=== PATIENT | male | born 1975 | race Caucasian/White ===

== ENCOUNTER 2017-08-08 19:56 | Inpatient (IN) | payer BC, OTHER ==
[~2017-08-08] VITALS: Ht 177.8 cm; Wt 80.3 kg
[~2017-08-08 19:56] MED LIST: DOXY50 OR; PRIL20TA2 PO
[2017-08-08 20:18] VITALS: BP 113/62; PULSE 109; RESP 18; TEMP 98.3; O2SAT 98
[2017-08-08] MEDS ORDERED: PRIL20TA2 PO (20:27)
--- NOTE | 2017-08-08 20:39 | PD ---
HPI Chief Complaint: GI Complaint Time Seen by Provider: 20:23 Travel History International Travel<30 days: No Contact w/Intl Traveler<30days: No Traveled to known affect area: No History of Present Illness HPI 41yo M with PMH of fibromyalgia here with c/o vomiting and nausea since 6am today. Said he was hungry at 2am and ate some [employer] stovetop meal. Said after vomiting, he started having a headache and generalized bodyache. Said pain in his body moves to different locations throughout the day. + Photophobia. Has history of migraine and similar headaches before. Denies any blood in vomit. Denies any fever, cough, chest pain, sob, abdominal pain, focal weakness or numbness. PFSH Past Medical History Diminished Hearing: No Fibromyalgia: Yes GERD: Yes Medical other: Yes (LYME) Musculoskeletal: Yes (BROKEN RIGHT ANKLE 12/31) Immunizations Current: Yes Tetanus Vaccination: > 5 Years Influenza Vaccination: No Past Surgical History Surgical History: No Previous Surgery Social History Alcohol Use: Yes (OCCASIONAL USE) Tobacco Use: No Substance Use: No Allergies-Medications (Allergen,Severity, Reaction): Coded Allergies: diphenhydramine (Unverified Allergy, Severe, TWITCHING, 08/08/17) Reported Meds & Prescriptions Reported Meds & Active Scripts Active Reported Prilosec (Omeprazole Magnesium) 20 Mg Tab 1 Tab PO DAILY Review of Systems Except as stated in HPI: all other systems reviewed are Neg Physical Exam Narrative GENERAL: 41yo M in mild distress. SKIN: Focused skin assessment warm/dry. HEAD: Atraumatic. Normocephalic. EYES: Pupils equal and round at 3mm bilaterally. EOMI. ENT: No nasal bleeding or discharge. Mucous membranes pink and moist. NECK: No nuchal rigidity. CARDIOVASCULAR: Mildly tachycardic at 109bpm. No murmur appreciated. RESPIRATORY: No accessory muscle use. Clear to auscultation. Breath sounds equal bilaterally. GASTROINTESTINAL: Abdomen soft, non-tender, nondistended. MUSCULOSKELETAL: No obvious deformities. No clubbing. No cyanosis. No edema. NEUROLOGICAL: Awake and alert. No obvious cranial nerve deficits. Motor grossly within normal limits. Normal speech. PSYCHIATRIC: Appropriate mood and affect; insight and judgment normal. Data Data Last Documented VS Vital Signs Date Time Temp Pulse Resp B/P (MAP) Pulse Ox O2 Delivery O2 Flow Rate FiO2 4/14/18 20:18 98.3 109 18 113/62 (79) 98 Orders Orders Complete Blood Count With Diff (08/08/17 20:33) Basic Metabolic Panel (Bmp) (08/08/17 20:33) Lipase (08/08/17 20:33) Sodium Chlor 0.9% 1000 Ml Inj (Ns 1000 M (08/08/17 20:45) Metoclopramide Inj (Reglan Inj) (08/08/17 20:45) Ketorolac Inj (Toradol Inj) (08/08/17 20:45) Influenzae A/B Antigen (08/08/17 20:33) Blood Culture (08/08/17 21:36) Lactic Acid Sepsis Protocol (08/08/17 21:36) Urinalysis - C+S If Indicated (08/08/17 21:36) Chest, Single Ap (08/08/17 ) Piperacil-Tazo 3.375 Gm Premix (Zosyn 3. (08/08/17 21:45) Vancomycin Consult Pharmacy (Vancomycin (08/08/17 22:00) Piperacil-Tazo 4.5 Gm Premix (Zosyn 4.5 (08/09/17 04:00) Admit To Inpatient (08/08/17 ) Vital Signs (Adult) Q4H (08/08/17 21:46) Activity Oob Ad Celia (08/08/17 21:46) [employer] Installer / Telemetry .CONTINUOUS (08/08/17 21:46) Intake + Output OSIRIS.QSHIFT (08/08/17 21:46) Diet Regular Basic (08/09/17 Breakfast) Sodium Chlor 0.9% 1000 Ml Inj (Ns 1000 M (08/08/17 21:46) Sodium Chloride 0.9% Flush (Ns Flush) (08/08/17 22:00) Sodium Chloride 0.9% Flush (Ns Flush) (08/09/17 09:00) Ondansetron Inj (Zofran Inj) (08/08/17 22:00) Comprehensive Metabolic Panel (08/09/17 06:00) Complete Blood Count With Diff (08/09/17 06:00) Scd Bilateral/Knee High OSIRIS.BID (08/08/17 21:46) Scotty Bilateral/Knee High OSIRIS.QSHIFT (08/08/17 21:49) Acetaminophen (Tylenol) (08/08/17 22:00) Acetamin-Hydrocod 325-5 Mg ([place] 5-325 (08/08/17 22:00) Morphine Inj (Morphine Inj) (08/08/17 22:00) Docusate Sodium-Senna (Cathi-Colace) (08/09/17 09:00) Magnesium Hydroxide Liq (Milk Of Magnesi (08/08/17 22:00) Sennosides (Senokot) (08/08/17 22:00) Bisacodyl Supp (Dulcolax Supp) (08/08/17 22:00) Lactulose Liq (Lactulose Liq) (08/08/17 22:00) Inpatient Certification (08/08/17 ) Vancomycin Inj (Vancomycin Inj) (08/08/17 22:00) Admit Order (Ed Use Only) (08/08/17 22:01) Labs Laboratory Tests Test 08/08/17 20:40 08/08/17 21:50 White Blood Count 9.3 TH/MM3 Red Blood Count 5.08 MIL/MM3 Hemoglobin 14.9 GM/DL Hematocrit 45.2 % Mean Corpuscular Volume 89.0 FL Mean Corpuscular Hemoglobin 29.3 PG Mean Corpuscular Hemoglobin Concent 32.9 % Red Cell Distribution Width 12.2 % Platelet Count 274 TH/MM3 Mean Platelet Volume 8.0 FL CBC Comment AUTO DIFF Differential Total Cells Counted 100 Neutrophils % (Manual) 69 % Band Neutrophils % 21 % Lymphocytes % 7 % Monocytes % 3 % Neutrophils # (Manual) 8.4 TH/MM3 Differential Comment FINAL DIFF MANUAL Platelet Estimate NORMAL Platelet Morphology Comment NORMAL Red Cell Morphology Comment NORMAL Blood Urea Nitrogen 18 MG/DL Creatinine 1.10 MG/DL Random Glucose 114 MG/DL Calcium Level 8.9 MG/DL Sodium Level 137 MEQ/L Potassium Level 3.5 MEQ/L Chloride Level 103 MEQ/L Carbon Dioxide Level 28.0 MEQ/L Anion Gap 6 MEQ/L Estimat Glomerular Filtration Rate 75 ML/MIN Lipase 69 U/L Urine Color YELLOW Urine Turbidity CLEAR Urine pH 6.5 Urine Specific [place] 1.015 Urine Protein TRACE mg/dL Urine Glucose (UA) NEG mg/dL Urine Ketones TRACE mg/dL Urine Occult Blood NEG Urine Nitrite NEG Urine Bilirubin NEG Urine Urobilinogen 0.2 MG/DL Urine Leukocyte Esterase NEG Urine RBC 3-5 /hpf Urine WBC 3-5 /hpf Urine Squamous Epithelial Cells 6-8 /hpf Urine Bacteria NONE /hpf Microscopic Urinalysis Comment CULT NOT INDICATED Lactic Acid Level 1.1 mmol/L MDM Medical Decision Making Medical Screen Exam Complete: Yes Emergency Medical Condition: Yes Differential Diagnosis Dehydration vs. migraine headache vs. gastroenteritis Narrative Course 41yo M with vomiting and nausea started 6am today. Pt then started having a headache that is associated with photophobia. Pt has no abdominal tenderness on exam but said has generalized pain that moves around his body. Pt denies any fever, but is mildly tachycardic at 109bpm. Pt given toradol, NS IVF and reglan. Pt reevaluated at bedside and said his headache has improved a lot and no longer nauseous. Influenza negative. Labs reviewed, no leukocytosis but bandemia of 21%. Blood cultures were drawn and lactic acid added. Pt empirically covered with vancomycin and zosyn for sepsis. Pt has no nuchal rigidity with full range of movement of neck and is nontoxic appearing. I discussed lumbar puncture with patient for low suspicion of bacterial meningitis and pt does not want lumbar puncture. To me this is more flu like symptoms. However, because of the bandemia and tachycardia, will admit. Pt said he is now coughing a little now so will add CXR and UA. CXR and UA negative. Discussed with Dr. Fuentes and accepted to her service. Sepsis Criteria SIRS Criteria (2 or more): Heart rate over 90, WBC > 78864, < 4000 or > 10% bands Diagnosis Primary Impression: Bandemia Admitting Information Admitting Physician Requests: Admit Elizabeth Friedman DO Aug 08, 2017 20:39
[2017-08-08] MEDS ORDERED: SODIUM CHLOR 0.9% 1000 ML INJ 1,000 ML IV ONE (20:45)
[2017-08-08] MEDS ORDERED: KETOROLAC TROMETHAMINE 30 MG/ML (IVP) VIAL IV PUSH ONE (20:45)
[2017-08-08] MEDS ORDERED: METOCLOPRAMIDE INJ 10 MG in SODIUM CHLORIDE 0.9% INJ 50 ML IV ONE (20:45)
[2017-08-08 20:48] LABS: HEMATOCRIT 45.2 % (39.0-51.0); HEMOGLOBIN 14.9 GM/DL (13.0-17.0); MEAN CORPUSCULAR HEMOGLOBIN 29.3 PG (27.0-34.0); MEAN CORPUSCULAR HGB CONC 32.9 % (32.0-36.0); PLATELET COUNT 274 TH/MM3 (150-450); RED BLOOD COUNT 5.08 MIL/MM3 (4.50-5.90); RED CELL DISTRIBUTION WIDTH 12.2 % (11.6-17.2); WHITE BLOOD COUNT 9.3 TH/MM3 (4.0-11.0)
[2017-08-08 21:00] LABS: CALCIUM 8.9 MG/DL (8.5-10.1)
[2017-08-08 21:03] LABS: CREATININE 1.1 MG/DL (0.60-1.30)
[2017-08-08 21:04] LABS: BANDS 21 % (0-6); LYMPHOCYTES 7 % (9-44); MONOCYTES 3 % (0-8); NEUTROPHIL # MANUAL DIFF 8.4 TH/MM3 (1.8-7.7); POLYS (SEG NEUTROPHILS) 69 % (16-70)
[2017-08-08] MEDS ORDERED: VANCOMYCIN INJ 1,251 MG in SODIUM CHLORID 0.9% 500 ML INJ 500 ML IV ONE (21:45)
[2017-08-08] MEDS ORDERED: PIPERACIL-TAZO 3.375 GM PREMIX 50 ML IV ONE (21:45)
[2017-08-08] MEDS ORDERED: Vancomycin Consult Pharmacy 1 EA OTHER SCH (22:00)
[2017-08-08] MEDS ORDERED: BISACODYL 10 MG SUPP RECTAL PRN (22:00)
[2017-08-08] MEDS ORDERED: LACTULOSE SYRUP 20 GM/30 ML CUP PO PRN (22:00)
[2017-08-08] MEDS ORDERED: MORPHINE SULFATE 2 MG/ML SYRINGE IV PUSH PRN (22:00)
[2017-08-08] MEDS ORDERED: ACETAMINOPHEN 325 MG TAB PO PRN (22:00)
[2017-08-08] MEDS ORDERED: ACETAMINOPHEN/HYDROcodone 325 MG/5 MG TAB PO PRN (22:00)
[2017-08-08] MEDS ORDERED: SENNOSIDES 8.6 MG TAB PO PRN (22:00)
[2017-08-08] MEDS ORDERED: SODIUM CHLORIDE 0.9% FLUSH 10 ML FLUSH IV FLUSH PRN (22:00)
[2017-08-08] MEDS ORDERED: MAGNESIUM HYDROXIDE SUSP 30 ML CUP PO PRN (22:00)
[2017-08-08] MEDS ORDERED: VANCOMYCIN INJ 1,250 MG in SODIUM CHLOR 0.9% 250 ML INJ 250 ML IV ONE (22:00)
[2017-08-08 22:01] LABS: BILIRUBIN, URINE NEG (NEG); BLOOD, URINE NEG (NEG); GLUCOSE,URINE NEG (NEG); KETONE, URINE TRACE mg/dL (NEG); NITRITE,URINE NEG (NEG); PH, URINE 6.5 (5.0-8.5); URINE COLOR YELLOW (YELLW/STRAW); URINE LEUKOCYTE ESTERASE NEG (NEG)
[2017-08-08 22:15] VITALS: BP 107/57; PULSE 92; RESP 18; O2SAT 98
[2017-08-08] MEDS: SODIUM CHLOR 0.9% 1000 ML INJ 1,000 ML IV SCH (22:17)
--- NOTE | 2017-08-08 22:33 | RADRPT ---
EXAM DATE/TIME: 08/08/2017 22:23 [facility] COMPARISON: CHEST SINGLE AP, February 25, 2012, 9:09. INDICATIONS : Chest pain. MEDICAL HISTORY : None. SURGICAL HISTORY : None. ENCOUNTER: Initial ACUITY: 1 day PAIN SCORE: 4/10 LOCATION: Bilateral chest FINDINGS: A single view of the chest demonstrates the lungs to be symmetrically aerated without evidence of mas s, infiltrate or effusion. The cardiomediastinal contours are unremarkable. Osseous structures are intact. CONCLUSION: No evidence of acute cardiopulmonary disease. Eliecer Sawyer MD on August 08, 2017 at 22:31 Board Certified Radiologist. This report was verified electronically.
[2017-08-08] MEDS: ONDANSETRON HCL 4 MG/2 ML VIAL IVP PRN (23:44)
[2017-08-09] VITALS (8 sets, daily range): BP systolic 102–136; BP diastolic 60–75; PULSE 69–81; RESP 16–20; TEMP 95.7–98.3; O2SAT 97–100
[2017-08-09] MEDS ORDERED: PIPERACIL-TAZO 4.5 GM PREMIX 100 ML IV SCH (04:00)
[2017-08-09 06:10] LABS: AUTOMATED NEUTROPHIL # 3.3 TH/MM3 (1.8-7.7); BASOPHIL % 0.9 % (0.0-2.0); EOSINOPHIL # 0.1 TH/MM3 (0-0.4); EOSINOPHIL % 2.2 % (0.0-4.0); HEMATOCRIT 38.9 % (39.0-51.0); HEMOGLOBIN 12.7 GM/DL (13.0-17.0); LYMPH % 15.5 % (9.0-44.0); LYMPHOCYTE # 0.7 TH/MM3 (1.0-4.8); MEAN CELL VOLUME 89.7 FL (80.0-100.0); MEAN CORPUSCULAR HEMOGLOBIN 29.4 PG (27.0-34.0); MEAN CORPUSCULAR HGB CONC 32.8 % (32.0-36.0); MEAN PLATELET VOLUME 8.1 FL (7.0-11.0); MONO % 12.8 % (0.0-8.0); MONOCYTE # 0.6 TH/MM3 (0-0.9); NEUT % 68.6 % (16.0-70.0); PLATELET COUNT 230 TH/MM3 (150-450); RED BLOOD COUNT 4.33 MIL/MM3 (4.50-5.90); WHITE BLOOD COUNT 4.7 TH/MM3 (4.0-11.0)
[2017-08-09 06:30] LABS: CHLORIDE 106 MEQ/L (98-107); SODIUM (NA) 138 MEQ/L (136-145)
[2017-08-09 07:02] LABS: ALBUMIN 2.9 GM/DL (3.4-5.0); ALKALINE PHOSPHATASE 43 U/L (45-117); ALT (GPT) 20 U/L (12-78); AST (GOT) 12 U/L (15-37); BICARBONATE 26.1 MEQ/L (21.0-32.0); BLOOD UREA NITROGEN 19 MG/DL (7-18); CALCIUM 7.5 MG/DL (8.5-10.1); GLOMERULAR FILTRATION RATE 83 ML/MIN (>89); GLUCOSE,RANDOM 102 MG/DL (74-106); TOTAL BILIRUBIN ADULT 0.5 MG/DL (0.2-1.0); TOTAL PROTEIN 6.4 GM/DL (6.4-8.2)
[2017-08-09] MEDS: SODIUM CHLOR 0.9% 1000 ML INJ 1,000 ML IV SCH ×2 (07:46→17:01)
[2017-08-09 08:43] LABS: BANDS 22 % (0-6); LYMPHOCYTES 16 % (9-44); MONOCYTES 9 % (0-8); NEUTROPHIL # MANUAL DIFF 3.5 TH/MM3 (1.8-7.7); POLYS (SEG NEUTROPHILS) 53 % (16-70)
[2017-08-09 08:44] LABS: TOXIC GRANULATION 1+ (NORMAL)
[2017-08-09] MEDS: SODIUM CHLORIDE 0.9% FLUSH 10 ML FLUSH IV FLUSH SCH ×2 (08:53→20:14)
[2017-08-09] MEDS: DOCUSATE SODIUM 50 MG/SENNA 8.6 MG TAB PO SCH ×2 (08:53→20:14)
[2017-08-09] MEDS ORDERED: VANCOMYCIN INJ 1,250 MG in SODIUM CHLOR 0.9% 250 ML INJ 250 ML IV SCH (09:00)
[2017-08-09] MEDS ORDERED: ACETAMINOPHEN/HYDROcodone 325 MG/5 MG TAB PO ONE (09:00)
--- NOTE | 2017-08-09 10:23 | HHI.HP ---
HPI Service [facility] Primary [facility] Physician Rafal Harrington M.D. Admission Diagnosis Bandemia Diagnoses: Chief Complaint: Vomiting Travel History International Travel<30 Days: No Contact w/Intl Traveler <30 Da: No Traveled to Known Affected Are: No History of Present Illness 41-year-old white male admitted for intractable vomiting Patient was in his usual state of health until around 6 AM yesterday morning when he began having nausea and projectile vomiting. denies any bilious nature to it. He denies any fevers or chills but reports feeling diffuse body aches. Due to the persistent nausea and vomiting decided come to the ER. Denies any bloody emesis. Reports one bout of loose stool earlier this morning. Reports an upset stomach as well as lightheadedness. In the emergency department patient was given IV fluids IV pain medication, chest x-ray which I independently reviewed was unremarkable for any acute infiltrates. Lipase was negative. Bandemia was incidentally noted with no elevated white count. CMP was otherwise unremarkable. Review of Systems Except as stated in HPI: all other systems reviewed are Neg Past Family Social History Past Medical History None per patient Allergies: Coded Allergies: diphenhydramine (Unverified Allergy, Severe, TWITCHING, 08/08/17) Family History Diabetes, brain tumor in brother Social History Stop smoking 2 decades ago, marijuana use 2 decades ago, social drinker Physical Exam Vital Signs Vital Signs Date Time Temp Pulse Resp B/P (MAP) Pulse Ox O2 Delivery O2 Flow Rate FiO2 08/09/17 08:00 98.1 81 16 114/60 (78) 97 08/09/17 07:05 98.3 83 16 102/63 (76) 100 08/09/17 04:06 80 18 104/62 (76) 98 Room Air 08/09/17 02:24 76 18 110/66 (81) 98 Room Air 08/09/17 00:17 78 18 114/68 (83) 98 Room Air 08/08/17 22:15 92 18 107/57 (74) 98 Room Air 08/08/17 20:18 98.3 109 18 113/62 (79) 98 Physical Exam VS: afebrile GENERAL: Sitting up in bed, no acute distress, awake, alert SKIN: Warm and dry. EYES: No scleral icterus. No injection or drainage. ENT: No nasal bleeding or discharge. Mucous membranes pink and moist. CARDIOVASCULAR: Regular rate and rhythm. no murmurs RESPIRATORY: No accessory muscle use. Clear to auscultation. Breath sounds equal bilaterally. GASTROINTESTINAL: Abdomen soft, non-tender, nondistended. Extremities: No clubbing, cyanosis, or edema. No obvious deformities. MUSCULOSKELETAL: adequate muscle bulk and tone for age and habitus NEUROLOGICAL: Awake and alert. No obvious cranial nerve deficits. No facial droop nor slurred speech noted. PSYCHIATRIC: Appropriate mood and affect; insight and judgment normal. Laboratory Laboratory Tests Test 08/08/17 20:40 08/08/17 21:50 08/09/17 06:00 White Blood Count 9.3 4.7 Red Blood Count 5.08 4.33 Hemoglobin 14.9 12.7 Hematocrit 45.2 38.9 Mean Corpuscular Volume 89.0 89.7 Mean Corpuscular Hemoglobin 29.3 29.4 Mean Corpuscular Hemoglobin Concent 32.9 32.8 Red Cell Distribution Width 12.2 12.0 Platelet Count 274 230 Mean Platelet Volume 8.0 8.1 CBC Comment AUTO DIFF DIFF FINAL Differential Total Cells Counted 100 100 Neutrophils % (Manual) 69 53 Band Neutrophils % 21 22 Lymphocytes % 7 16 Monocytes % 3 9 Neutrophils # (Manual) 8.4 3.5 Differential Comment FINAL DIFF MANUAL FINAL DIFF MANUAL Platelet Estimate NORMAL NORMAL Platelet Morphology Comment NORMAL NORMAL Red Cell Morphology Comment NORMAL NORMAL Blood Urea Nitrogen 18 19 Creatinine 1.10 1.00 Random Glucose 114 102 Calcium Level 8.9 7.5 Sodium Level 137 138 Potassium Level 3.5 3.5 Chloride Level 103 106 Carbon Dioxide Level 28.0 26.1 Anion Gap 6 6 Estimat Glomerular Filtration Rate 75 83 Lipase 69 Urine Color YELLOW Urine Turbidity CLEAR Urine pH 6.5 Urine Specific [place] 1.015 Urine Protein TRACE Urine Glucose (UA) NEG Urine Ketones TRACE Urine Occult Blood NEG Urine Nitrite NEG Urine Bilirubin NEG Urine Urobilinogen 0.2 Urine Leukocyte Esterase NEG Urine RBC 3-5 Urine WBC 3-5 Urine Squamous Epithelial Cells 6-8 Urine Bacteria NONE Microscopic Urinalysis Comment CULT NOT INDICATED Lactic Acid Level 1.1 Neutrophils (%) (Auto) 68.6 Lymphocytes (%) (Auto) 15.5 Monocytes (%) (Auto) 12.8 Eosinophils (%) (Auto) 2.2 Basophils (%) (Auto) 0.9 Neutrophils # (Auto) 3.3 Lymphocytes # (Auto) 0.7 Monocytes # (Auto) 0.6 Eosinophils # (Auto) 0.1 Basophils # (Auto) 0.0 Toxic Granulation 1+ Total Protein 6.4 Albumin 2.9 Alkaline Phosphatase 43 Aspartate Amino Transf (AST/SGOT) 12 Alanine Aminotransferase (ALT/SGPT) 20 Total Bilirubin 0.5 Date/Time Source Procedure Growth Status 08/08/17 21:50 Blood Peripheral Aerobic Blood Culture Pending Received 08/08/17 21:50 Blood Peripheral Anaerobic Blood Culture Pending Received 08/08/17 20:40 Nasal Aspirate Influenza Types A,B Antigen ([place]) - Final NEGATIVE FOR FLU A AND B ANTIGEN.... Complete Result Diagram: 08/09/17 0600 08/09/17 0600 Imaging Last Impressions Chest X-Ray 08/08/17 0000 Signed Impressions: Service Date/Time: Tuesday, August 08, 2017 22:23 - CONCLUSION: No evidence of acute cardiopulmonary disease. Eliecer Sawyer MD [place] VTE Risk Assessment Caprini VTE Risk Assessment: No/Low Risk (score <= 1) Caprini Risk Assessment Model Point Value = 1 Point Value = 2 Point Value = 3 Point Value = 5 Age 41-60 Minor surgery BMI > 25 kg/m2 Swollen legs Varicose veins or History of unexplained or recurrent spontaneous Oral contraceptives or hormone replacement Sepsis (< 1 month) Serious lung disease, including pneumonia (< 1 month) Abnormal pulmonary function Acute myocardial infarction Congestive heart failure (< 1 month) History of inflammatory bowel disease Medical patient at bed rest Age 61-74 Arthroscopic surgery Major open surgery (> 45 min) Laparoscopic surgery (> 45 min) Malignancy Confined to bed (> 72 hours) Immobilizing plaster cast Central venous access Age >= 75 History of VTE Family history of VTE Factor V Leiden Prothrombin [id number] Lupus anticoagulant Anticardiolipin antibodies Elevated serum homocysteine Heparin-induced thrombocytopenia Other congenital or acquired thrombophilia Stroke (< 1 month) Elective arthroplasty Hip, pelvis, or leg fracture Acute spinal cord injury (< 1 month) Prophylaxis Regimen Total Risk Factor Score Risk Level Prophylaxis Regimen 0-1 Low Early ambulation 2 Moderate Order ONE of the following: *Sequential Compression Device (SCD) *Heparin 5000 units SQ BID 3-4 Higher Order ONE of the following medications: *Heparin 5000 units SQ TID *Enoxaparin/Lovenox 40 mg SQ daily (WT < 150 kg, CrCl > 30 mL/min) *Enoxaparin/Lovenox 30 mg SQ daily (WT < 150 kg, CrCl > 10-29 mL/min) *Enoxaparin/Lovenox 30 mg SQ BID (WT < 150 kg, CrCl > 30 mL/min) AND/OR *Sequential Compression Device (SCD) 5 or more Highest Order ONE of the following medications: *Heparin 5000 units SQ TID (Preferred with Epidurals) *Enoxaparin/Lovenox 40 mg SQ daily (WT < 150 kg, CrCl > 30 mL/min) *Enoxaparin/Lovenox 30 mg SQ daily (WT < 150 kg, CrCl > 10-29 mL/min) *Enoxaparin/Lovenox 30 mg SQ BID (WT < 150 kg, CrCl > 30 mL/min) AND *Sequential Compression Device (SCD) Assessment and Plan Assessment and Plan 41-year-old white male admitted for bandemia Bandemia -Likely stress-induced, no leukocytosis, no fever Nausea vomiting abdominal pain -Suspect viral gastroenteritis versus food poisoning -Supportive care with IV fluids, IV Zofran, clear liquid trial when ready, stopping IV abx Physician Certification 2 Midnight Certification Type: Admission for Inpatient Services Order for Inpatient Services The services are ordered in accordance with Medicare regulations or non- Medicare payer requirements, as applicable. In the case of services not specified as inpatient-only, they are appropriately provided as inpatient services in accordance with the 2-midnight benchmark. Estimated LOS (days): 2 2 days is the estimated time the patient will need to remain in the hospital, assuming treatment plan goals are met and no additional complications. Post-Hospital Plan: Home Amado Ocampo MD Aug 09, 2017 10:23
[2017-08-09] MEDS: ONDANSETRON HCL 4 MG/2 ML VIAL IVP PRN ×2 (10:29→20:14)
[2017-08-09] MEDS ORDERED: ALUMINUM/MAGNESIUM/SIMETH 30 ML CUP PO PRN (16:15)
[2017-08-09] MEDS ORDERED: ONDA4TAB7 SL (18:30)
--- NOTE | 2017-08-09 18:31 | HHI.DCPOC ---
Discharge Care Plan Diagnosis: (1) Food poisoning (2) Gastroenteritis Goals to Promote Your Health * To prevent worsening of your condition and complications * To maintain your health at the optimal level Directions to Meet Your Goals Take your medications as prescribed Follow your dietary instruction Follow activity as directed Keep your appointments as scheduled Take your immunizations and boosters as scheduled If your symptoms worsen call your PCP, if no PCP go to Urgent Care Center or Emergency Room Smoking is Dangerous to Your Health. Avoid second hand smoke Call the 24-hour hour crisis hotline for domestic abuse at Amado Ocampo MD Aug 09, 2017 18:31
[2017-08-10] MEDS ORDERED: PHARMACY ORDERED LAB ONE (08:45)
== END 2017-08-09 23:22 | disposition home or self-care (01) | DRG 918 ==
LOC: PHED 19:56 → PHEDA 22:03 → PHEDH 08-09 01:02 → PH3B 08-09 08:19
PROVIDERS: ADMIT Hospitalist; ATTEND Hospitalist
DX: T62.91XA Toxic effect of unspecified noxious substance eaten as food, accidental (unintentional), initial encounter (principal); A08.0 Rotaviral enteritis; A08.11 Acute gastroenteropathy due to Norwalk agent; D72.825 Bandemia; M79.7 Fibromyalgia; K21.9 Gastro-esophageal reflux disease without esophagitis; Z83.3 Family history of diabetes mellitus; Z87.891 Personal history of nicotine dependence; R00.0 Tachycardia, unspecified
CPT/HCPCS: 71045; 80048; 80053; 81001; 83605; 83690; 85007; 85025; 85027; 87040; 87205; 87425; 87493; 87506; 87804; 96365; 96368; 96375; J1885; J2405; J2543; J2765; J3370; J7030; J7050